=== PATIENT | male | born 1975 | race Two or more races ===

== ENCOUNTER 2024-08-11 05:06 | Day surgery (SDC) | payer OTHER ==
[2024-08-11 06:26] LABS: BASOPHILS % (AUTO) 0.4 % (0.0-2.0); EOSINOPHILS # (AUTO) 0.2 K/uL (0.0-0.7); EOSINOPHILS % (AUTO) 3.1 % (0.0-6.0); HEMATOCRIT 43 % (39-51); HEMOGLOBIN 14.9 g/dL (13.5-17.5); MEAN CORPUSCULAR HEMOGLOBIN 32 PG (26.0-33.0); MEAN CORPUSCULAR HGB CONC 34 g/dl (31.0-36.0); MEAN CORPUSCULAR VOLUME 93 fL (80-96); MONOCYTES # (AUTO) 0.4 K/uL (0.1-1.30); MONOCYTES % (AUTO) 6.1 % (2.0-12.0); NEUTROPHILS # (AUTO) 3.9 K/uL (1.8-8.9); NEUTROPHILS % (AUTO) 59.4 % (43.0-81.0); PLATELET COUNT (AUTO) 302 K/uL (150-450); RED BLOOD CELL COUNT(AUTO) 4.69 MIL/uL (4.5-6.0); RED CELL DISTRIBUTION WIDTH 13.1 % (11.5-15.0); WHITE BLOOD COUNT (AUTO) 6.5 K/uL (4.3-11.0)
[2024-08-11] MEDS ORDERED: MIDAZOLAM HCL 2 MG/2ML VIAL ONE (06:31)
[2024-08-11] MEDS ORDERED: FENTANYL PF 100MCG/2ML AMPUL ONE (06:31)
[2024-08-11 06:36] LABS: CALCIUM, SERUM 8.8 mg/dL (8.5-10.1); CREATININE 0.9 mg/dL (0.6-1.3)
[2024-08-11 06:40] LABS: INR 0.98 (0.91-1.10); PARTIAL THROMBOPLASTIN TIME 27.1 SEC (24.3-34.3); PROTHROMBIN TIME 10.4 SECS (9.2-11.1)
[2024-08-11] MEDS ORDERED: BUPIVACAINE 0.5 % PF 150 MG/30 ML VIAL ONE (06:44)
[2024-08-11] MEDS ORDERED: LABETALOL 20 MG/4 ML VIAL IV PRN (07:30)
[2024-08-11] MEDS ORDERED: MEPERIDINE25 MG SYR 25 MG/ML VIAL IM PRN (07:30)
[2024-08-11] MEDS ORDERED: ACETAMINOPHEN 325 MG TABLET PO PRN (07:30)
[2024-08-11] MEDS ORDERED: hydrALAZINE HCL IV 20 MG VIAL ONE (08:14)
[2024-08-11 08:16] VITALS: BP 144/106
[2024-08-11] MEDS: hydrALAZINE HCL IV 20 MG VIAL IV PRN (08:16)
== END 2024-08-11 09:06 | disposition home or self-care (01) ==
LOC: DS 05:06
PROVIDERS: ATTEND Student in an Organized Health Care Education/Training Program
DX: T84.098A Other mechanical complication of other internal joint prosthesis, initial encounter (principal); E66.9 Obesity, unspecified; Y83.1 Surgical operation with implant of artificial internal device as the cause of abnormal reaction of the patient, or of later complication, without mention of misadventure at the time of the procedure
CPT/HCPCS: 20680; 73100; 85025; 80048; 85610; 85730; 36415; J0690; J3490 ×3; J1100; J2704; J3010; J0360; J1885; J2405; J7030; J2250